=== PATIENT | male | born 1965 | race Caucasian/White ===

== ENCOUNTER → 2020-08-28 06:57 | Outpatient (CLI) | payer MEDICAID, SELFPAY ==
[2020-08-29 22:47] LABS: SARS-CoV-2 RNA PCR Negative
== END ==
PROVIDERS: PCP Internal Medicine; Visit Provider Internal Medicine
DX: R68.89 Other general symptoms and signs (principal); Z20.822 Contact with and (suspected) exposure to COVID-19
CPT/HCPCS: C9803; U0003; U0005